=== PATIENT | female | born 1975 | race Two or more races ===

== ENCOUNTER 2023-04-29 18:47 | Emergency (ER) | payer MEDICARE, MEDICAID, SELFPAY ==
--- NOTE | ~2023-04-29 | CT_ITS ---
EXAMINATION: CT ABDOMEN AND PELVIS WITHOUT CONTRAST CLINICAL INFORMATION: bilateral flank pain. COMPARISON: No pertinent prior studies are available for comparison. TECHNIQUE: Multidetector volumetric imaging was performed from the superior aspect of the liver through the pubic symphysis without contrast per renal stone protocol. Sagittal and coronal reformatted images were obtained on the technologist workstation. This CT examination was performed using dose optimization techniques as appropriate, variously including the following: *Automated exposure control *Adjustment of mA and/or kV according to patient size (this includes techniques or standardized protocols for targeted exams where dose is matched to indication/reason for exam; i.e. extremities or head) *Use of iterative reconstruction technique DLP: 658 mGy-cm. FINDINGS: LUNG BASES: Left basilar atelectasis LIVER, GALLBLADDER, BILIARY TREE: The non-contrast liver is normal in size, shape, and attenuation. No focal hepatic lesion or biliary ductal dilatation is present. The gallbladder is unremarkable with no evidence of radiopaque gallstones, gallbladder wall thickening, or obvious pericholecystic inflammatory changes. PANCREAS: Unremarkable. SPLEEN: Unremarkable. ADRENAL GLANDS: Unremarkable. KIDNEYS AND URETERS: The kidneys are normal in size, shape, and attenuation. No hydronephrosis, hydroureter, or calculi seen. No perinephric stranding. BLADDER: Nonspecific concentric bladder wall thickening. GASTROINTESTINAL TRACT: The small and large bowel are unremarkable. The appendix is unremarkable. ABDOMINAL WALL: No significant hernia is appreciated. LYMPHOVASCULAR STRUCTURES: No lymphadenopathy. The aorta is unremarkable.. PELVIC VISCERA: Unremarkable. OSSEUS STRUCTURES: Unremarkable. CT/CT abdomen pelvis wo IV con IMPRESSION: No renal or ureteric calculi. No hydronephrosis or hydroureter. Nonspecific concentric bladder wall thickening. Cystitis cannot be excluded with this appearance and correlation with urinalysis would be recommended.
--- NOTE | 2023-04-29 20:19 | ED_ITS ---
HPI - General Adult General Chief complaint: Abdominal Pain Stated complaint: painful when urinating Time Seen by Provider: 04/29/23 22:19 Related Data Previous Rx's Medication Instructions Recorded cefuroxime axetil 250 mg tablet 250 mg PO BID 7 days #14 tabs 04/29/23 phenazopyridine 200 mg tablet 200 mg PO TID 2 days #6 tabs 04/29/23 (Pyridium) tramadol 50 mg tablet 50 mg PO Q6H PRN pain #20 tabs 04/29/23 Allergies Allergy/AdvReac Type Severity Reaction Status Date / Time ibuprofen Allergy Severe Anaphylaxis Verified 04/29/23 20:21 bee pollen [bee stings] AdvReac Anaphylaxis Verified 04/29/23 20:25 oak AdvReac Anaphylaxis Verified 04/29/23 20:25 sesame seed AdvReac Anaphylaxis Verified 04/29/23 20:27 [facility] Social History Social History Advance Directives: No Advance Directives Information Provided: No Physical Exam ED Vital Signs: Vital Signs - 24 hr 04/29/23 20:21 04/29/23 21:21 Temperature 97.7 F 98.2 F Pulse Rate 88 71 Respiratory Rate 20 16 Blood Pressure 146/61 H 128/67 Pulse Oximetry 98 99 Oxygen Delivery Method Room Air Room Air BMI result Body Mass Index 29.6 Course Course Course Narrative: RME- 47 year old female presents for evaluation of bilateral flank pain right greater than left. History of kidney stones. Plan for labs, UA, CT abdomen and Pelvis Medications Administered Discontinued Medications Generic Name Dose Route Start Last Admin Trade Name Freq PRN Reason Stop Dose Admin Cefuroxime Axetil 500 mg 04/29/23 22:26 04/29/23 22:51 Cefuroxime Axetil 500 Mg Tablet PO 04/29/23 22:27 500 mg ONCE ONE Administration Phenazopyridine HCl 200 mg 04/29/23 22:26 04/29/23 22:51 Phenazopyridine Hcl 200 Mg Tablet PO 04/29/23 22:27 200 mg ONCE ONE Administration Tramadol HCl 50 mg 04/29/23 22:48 04/29/23 22:54 Tramadol Hcl 50 Mg Tablet PO 04/29/23 22:49 50 mg ONCE ONE Administration Medical Decision Making Lab Data 04/29/23 20:45 04/29/23 20:45 Labs: Lab Results 11/06/23 Range/Units 20:45 WBC 10.6 (4.8-10.8) X10*3/uL RBC 4.39 (4.20-5.50) X10*6/uL Hgb 10.2 L (12.0-16.0) g/dl Hct 33.3 L (37.0-47.0) % MCV 75.9 L (80.0-98.0) fL MCH 23.2 L (27.0-33.0) pg MCHC 30.6 L (31.0-35.0) g/dl RDW 17.0 H (11.0-16.0) % Plt Count 365 (160-400) X10*3/uL MPV 8.9 L (9.4-12.3) fL Immature Gran % (Auto) 0.3 (0.0-0.4) % Neut % (Auto) 66.9 (45-73) % Lymph % (Auto) 24.3 (20-40) % [place] % (Auto) 7.3 (2-11) % Eos % (Auto) 0.8 (0-4) % Baso % (Auto) 0.4 (0-2) % Lymph # (Auto) 2.6 (1.2-4.9) X10*3/uL [place] # (Auto) 0.8 (0.1-1.2) X10*3/uL Eos # (Auto) 0.1 (0.0-0.4) X10*3/uL Baso # (Auto) 0.0 (0.0-0.2) X10*3/uL Abs Immat Gran (auto) 0.03 (0.00-0.03) X10*3/uL Absolute Neuts (auto) 7.1 (2.0-8.3) x10*3/uL Absolute Nucleated RBC 0.000 (0.0-0.012) X10*3/uL Nucleated RBC % (auto) 0.0 (0.0-0.2) /100WBC Sodium 139 (135-145) mmol/L Potassium 3.7 (3.3-5.1) mmol/L Chloride 106 (96-108) mmol/L Carbon Dioxide 28 (22-29) mmol/L Anion Gap 9 L (12-20) BUN 7 L (9-16) mg/dL Creatinine 0.80 (0.5-1.4) mg/dL Estim Creat Clear Calc 82.9 Estimated GFR > 60 Random Glucose 96 (60-115) mg/dL Calcium 9.8 (8.4-10.2) mg/dL Total Bilirubin 0.3 (0.0-1.0) mg/dL AST 23 (5-31) U/L ALT 23 (0-31) U/L Alkaline Phosphatase 64 (39-117) U/L Total Protein 7.8 (6.5-8.0) g/dL Albumin 4.2 (3.5-5.0) g/dL Lipase 40 (8-78) U/L Beta HCG, Quant < 2 mIU/mL Urine Color Yellow Urine Appearance Cloudy Urine pH 7.0 (5.0-9.0) Ur Specific [place] 1.010 (1.005-1.025) Urine Protein 100 (2+) H (Neg-Trace) mg/dL Urine Glucose (UA) Negative (Negative) mg/dL Urine Ketones Negative (Negative) mg/dL Urine Blood Moderate (2+) H (Negative) Urine Nitrite Positive H (Negative) Ur Leukocyte Esterase Large (3+) H (Negative) Urine RBC 6-10 H (0-2) /HPF Urine WBC >50 H (0-5) /HPF Ur Squamous Epith Cells 0-2 (0-2) /HPF Urine Bacteria 4+ (None Seen) Hyaline Casts 0-2 (0-2) /LPF Discharge Plan Discharge Clinical Impression: UTI (urinary tract infection) Patient Disposition: Home, Self-Care Instructions: Urinary Tract Infection in Women (ED) Additional Instructions: Drink plenty of fluids Take antibiotics as prescribed Pain medication as prescribed Report to the ER if high fever/vomiting/increased pain Prescriptions: New cefuroxime axetil 250 mg tablet 250 mg PO BID 7 Days Qty: 14 0RF tramadol 50 mg tablet 50 mg PO Q6H PRN (Reason: pain) Qty: 20 0RF phenazopyridine [Pyridium] 200 mg tablet 200 mg PO TID 2 Days Qty: 6 0RF Interventions: ED Discharge Assessment Last Done: 04/29/23 23:28 Discharge Date/Time: 04/29/23 23:00
[2023-04-29 20:21] VITALS: BP 146/61; PULSE 88; RESP 20; TEMP 36.5; O2SAT 98; BMI 29.6
[2023-04-29 20:55] LABS: MANUAL DIFF FLAG NO
[2023-04-29 20:56] LABS: Basophils Percent Auto 0.4 % (0-2); Eosinophils Absolute Auto 0.1 X10*3/uL (0.0-0.4); Eosinophils Percent Auto 0.8 % (0-4); Hematocrit 33.3 % (37.0-47.0); Hemoglobin 10.2 g/dl (12.0-16.0); Imm Gran Abs Auto 0.03 X10*3/uL (0.00-0.03); Imm Gran Pct Auto 0.3 % (0.0-0.4); Lymphocytes Absolute Auto 2.6 X10*3/uL (1.2-4.9); Lymphocytes Percent Auto 24.3 % (20-40); Mean Corpuscular HGB Conc 30.6 g/dl (31.0-35.0); Mean Corpuscular Hemoglobin 23.2 pg (27.0-33.0); Mean Corpuscular Volume 75.9 fL (80.0-98.0); Mean Platelet Volume 8.9 fL (9.4-12.3); Monocytes Absolute Auto 0.8 X10*3/uL (0.1-1.2); Monocytes Percent Auto 7.3 % (2-11); Neutrophils Absolute Auto 7.1 x10*3/uL (2.0-8.3); Neutrophils Percent Auto 66.9 % (45-73); Platelet Count 365 X10*3/uL (160-400); Red Blood Count 4.39 X10*6/uL (4.20-5.50); White Blood Count 10.6 X10*3/uL (4.8-10.8)
[2023-04-29 20:57] LABS: Appearance Urine Cloudy; Color Urine Yellow; Glucose Urine UA Negative (Negative); Leukocyte Esterase Urine Large (3+) (Negative); Nitrite Urine Positive (Negative); UMIC TRIGGER UACC YES; Urine Blood Moderate (2+) (Negative); Urine Ketones Negative (Negative); Urine Protein 100 (2+) mg/dL (Neg-Trace)
[2023-04-29 20:59] LABS: Bacteria Urine 4+ (None Seen); Hyaline Casts Urine 0-2 /LPF (0-2); Squamous Epithelial Cell Urine 0-2 /HPF (0-2); UACC Culture Trigger YES; WBC Urine >50 /HPF (0-5)
[2023-04-29 21:16] LABS: Alanine Aminotransferase 23 U/L (0-31); Albumin Level 4.2 g/dL (3.5-5.0); Alkaline Phosphatase 64 U/L (39-117); Anion Gap 9 (12-20); Aspartate Amino Transferase 23 U/L (5-31); Bilirubin Total 0.3 mg/dL (0.0-1.0); Blood Urea Nitrogen 7 mg/dL (9-16); Calcium 9.8 mg/dL (8.4-10.2); Carbon Dioxide 28 mmol/L (22-29); Chloride 106 mmol/L (96-108); Creatinine Clr Calc Pharmacy 82.9; Estimated Glomerular Filt Rate > 60; Glucose Random 96 mg/dL (60-115); Lipase 40 U/L (8-78); Potassium 3.7 mmol/L (3.3-5.1); Sodium 139 mmol/L (135-145); Total Protein 7.8 g/dL (6.5-8.0)
[2023-04-29 21:21] VITALS: BP 128/67; PULSE 71; RESP 16; TEMP 36.8; O2SAT 99
[2023-04-29 21:26] LABS: HCG Quantitative < 2 mIU/mL
--- NOTE | 2023-04-29 22:22 | PC.NURSE ---
pt tearful reporting 10/10 bilat flank pain; heating packs provided and assisted pt to reposition. educated pt awaiting for primary eval by ed provider at this time.
[2023-04-29] MEDS: Phenazopyridine HCL 200 MG TABLET PO (22:51)
[2023-04-29] MEDS: cefuroxime axetiL 500 MG TABLET PO (22:51)
[2023-04-29] MEDS: traMADoL HCL 50 MG TABLET PO (22:54)
--- NOTE | 2024-02-11 01:37 | ED.ABDPAIN ---
HPI - Abdominal Pain General Chief Complaint: Abdominal Pain Stated Complaint: painful when urinating Time Seen by Provider: 04/29/23 22:19 Source: patient Mode of arrival: ambulatory Limitations: no limitations History of Present Illness ED Provider: garrett [facility] narrative: Patient with history of kidney stone comes here with bilateral flank pain right more than the left for last few days getting worse denies any dysuria frequency no gross hematuria no fever no chills Related Data Previous Rx's ?Medication ?Instructions ?Recorded cefuroxime axetil 250 mg tablet 250 mg PO BID 7 days #14 tabs 04/29/23 phenazopyridine 200 mg tablet 200 mg PO TID 2 days #6 tabs 04/29/23 (Pyridium) tramadol 50 mg tablet 50 mg PO Q6H PRN pain #20 tabs 04/29/23 Allergies Allergy/AdvReac Type Severity Reaction Status Date / Time ibuprofen Allergy Severe Anaphylaxis Verified 04/29/23 20:21 bee pollen [bee stings] AdvReac Anaphylaxis Verified 04/29/23 20:25 oak AdvReac Anaphylaxis Verified 04/29/23 20:25 sesame seed AdvReac Anaphylaxis Verified 04/29/23 20:27 Review of Systems Review of Systems Yes all other systems are reviewed and are negative [facility] Social History Social History Advance Directives: No Advance Directives Information Provided: No Physical Exam ED Vital Signs: BMI result Body Mass Index 29.6 Appearance: Alert. Oriented X3. No acute distress. Eyes: No pallor or icterus ENT: Pharynx normal. Oral Mucosa moist Neck: Normal inspection. Neck supple. CVS: Normal heart rate and rhythm. Pulses normal. Respiratory: No respiratory distress. Equal air entry bilateral, no wheezing/rales/rhonchi Abdomen: Soft and nontender. Bowel sounds are present, no mass palpable, mild bilateral CVA tenderness Skin: Skin warm and dry. Normal skin color. Normal skin turgor. Extremities: No lower extremity edema. No calf tenderness Neuro: Oriented X 3. Medical Decision Making Medical Decision Making MDM Narrative: Patient's uncomplicated UTI will prescribe antibiotics likely the cause for the pain Lab Data [facility] Lab Attestation statement: I reviewed the patient's lab results. 04/29/23 20:45 04/29/23 20:45 Labs: Lab Results 04/29/23 Range/Units 20:45 WBC 10.6 (4.8-10.8) X10*3/uL RBC 4.39 (4.20-5.50) X10*6/uL Hgb 10.2 L (12.0-16.0) g/dl Hct 33.3 L (37.0-47.0) % MCV 75.9 L (80.0-98.0) fL MCH 23.2 L (27.0-33.0) pg MCHC 30.6 L (31.0-35.0) g/dl RDW 17.0 H (11.0-16.0) % Plt Count 365 (160-400) X10*3/uL MPV 8.9 L (9.4-12.3) fL Immature Gran % (Auto) 0.3 (0.0-0.4) % Neut % (Auto) 66.9 (45-73) % Lymph % (Auto) 24.3 (20-40) % [place] % (Auto) 7.3 (2-11) % Eos % (Auto) 0.8 (0-4) % Baso % (Auto) 0.4 (0-2) % Lymph # (Auto) 2.6 (1.2-4.9) X10*3/uL [place] # (Auto) 0.8 (0.1-1.2) X10*3/uL Eos # (Auto) 0.1 (0.0-0.4) X10*3/uL Baso # (Auto) 0.0 (0.0-0.2) X10*3/uL Abs Immat Gran (auto) 0.03 (0.00-0.03) X10*3/uL Absolute Neuts (auto) 7.1 (2.0-8.3) x10*3/uL Absolute Nucleated RBC 0.000 (0.0-0.012) X10*3/uL Nucleated RBC % (auto) 0.0 (0.0-0.2) /100WBC Sodium 139 (135-145) mmol/L Potassium 3.7 (3.3-5.1) mmol/L Chloride 106 (96-108) mmol/L Carbon Dioxide 28 (22-29) mmol/L Anion Gap 9 L (12-20) BUN 7 L (9-16) mg/dL Creatinine 0.80 (0.5-1.4) mg/dL Estim Creat Clear Calc 82.9 Estimated GFR > 60 Random Glucose 96 (60-115) mg/dL Calcium 9.8 (8.4-10.2) mg/dL Total Bilirubin 0.3 (0.0-1.0) mg/dL AST 23 (5-31) U/L ALT 23 (0-31) U/L Alkaline Phosphatase 64 (39-117) U/L Total Protein 7.8 (6.5-8.0) g/dL Albumin 4.2 (3.5-5.0) g/dL Lipase 40 (8-78) U/L Beta HCG, Quant < 2 mIU/mL Urine Color Yellow Urine Appearance Cloudy Urine pH 7.0 (5.0-9.0) Ur Specific [place] 1.010 (1.005-1.025) Urine Protein 100 (2+) H (Neg-Trace) mg/dL Urine Glucose (UA) Negative (Negative) mg/dL Urine Ketones Negative (Negative) mg/dL Urine Blood Moderate (2+) H (Negative) Urine Nitrite Positive H (Negative) Ur Leukocyte Esterase Large (3+) H (Negative) Urine RBC 6-10 H (0-2) /HPF Urine WBC >50 H (0-5) /HPF Ur Squamous Epith Cells 0-2 (0-2) /HPF Urine Bacteria 4+ (None Seen) Hyaline Casts 0-2 (0-2) /LPF Medications Administered Discontinued Medications Generic Name Dose Route Start Last Admin Trade Name Jerel PRN Reason Stop Dose Admin Cefuroxime Axetil 500 mg 04/29/23 22:26 04/29/23 22:51 Cefuroxime Axetil 500 Mg Tablet PO 04/29/23 22:27 500 mg ONCE ONE Administration Phenazopyridine HCl 200 mg 04/29/23 22:26 04/29/23 22:51 Phenazopyridine Hcl 200 Mg Tablet PO 04/29/23 22:27 200 mg ONCE ONE Administration Tramadol HCl 50 mg 04/29/23 22:48 04/29/23 22:54 Tramadol Hcl 50 Mg Tablet PO 04/29/23 22:49 50 mg ONCE ONE Administration Discharge Plan Discharge Clinical Impression: UTI (urinary tract infection) Patient Disposition: Home, Self-Care Instructions: Urinary Tract Infection in Women (ED) Additional Instructions: Drink plenty of fluids Take antibiotics as prescribed Pain medication as prescribed Report to the ER if high fever/vomiting/increased pain Prescriptions: New cefuroxime axetil 250 mg tablet 250 mg PO BID 7 Days Qty: 14 0RF tramadol 50 mg tablet 50 mg PO Q6H PRN (Reason: pain) Qty: 20 0RF phenazopyridine [Pyridium] 200 mg tablet 200 mg PO TID 2 Days Qty: 6 0RF Interventions: ED Discharge Assessment Last Done: 04/29/23 23:28 Discharge Date/Time: 04/29/23 23:00 Print Language: Slovenian
== END 2023-04-29 23:00 | disposition home or self-care (01) ==
PROVIDERS: Physician Assistant; Emergency Provider Internal Medicine
DX: N39.0 Urinary tract infection, site not specified (principal); R30.0 Dysuria; R10.9 Unspecified abdominal pain; Z79.899 Other long term (current) drug therapy
CPT/HCPCS: 36415; 74176; 80053; 81001; 83690; 84702; 85025; 87086; 87088; 87186; 99284

== ENCOUNTER 2024-04-01 12:55 | Emergency (ER) | payer MEDICARE, MEDICAID, SELFPAY ==
--- NOTE | ~2024-04-01 | XR_ITS ---
EXAMINATION: XR CHEST CLINICAL INFORMATION: Cough. Question pneumonia. COMPARISON: None available. TECHNIQUE: PA view of the chest was obtained. FINDINGS: The study is limited by low lung volumes. Question subtle right lower lobe focal infiltrate using the possibility of pneumonia, equivocal. If clinical suspicion warrants, and if the patient is able, repeat standing upright PA and lateral views of the chest in full inspiration may be of use for further evaluation. No effusion or pneumothorax is seen. The cardiovascular structures, mediastinum, diaphragm, bones, and soft tissues appear unremarkable. XR/XR chest 1V IMPRESSION: Findings as above. Electronically signed by: Stephon Flores MD 04/01/2024 04:48 PM EDT
--- NOTE | 2024-04-01 12:58 | ECG_ITS ---
Test Reason : CHEST PAIN Blood Pressure : / mmHG Vent. Rate : 089 BPM Atrial Rate : 089 BPM P-R Int : 148 ms QRS Dur : 082 ms QT Int : 342 ms P-R-T Axes : 044 050 046 degrees QTc Int : 416 ms Normal sinus rhythm Normal ECG No previous ECGs available Referred By: Alberto Rubalcava Electronically Signed By:DENNIS SAMPSON MD
[2024-04-01 13:57] VITALS: BP 104/45; PULSE 82; RESP 22; TEMP 36.8; O2SAT 98; BMI 26.6
--- NOTE | 2024-04-01 14:01 | ED_ITS ---
HPI - General Adult General Chief complaint: Upper Respiratory Symptoms Stated complaint: cough-cp Time Seen by Provider: 04/01/24 16:55 Source: patient Mode of arrival: ambulatory Limitations: no limitations History of Present Illness ED Provider: Alberto Rubalcava PA-C HPI narrative: 48 yold female with pmh of asthma presents to the ED for 3 weeks of coughing with sob and wheezing. Patient states fever and chills. Patient states no improvement with asthma meds. Patient states was on antibiotics, but no improvement. Patient states never having xray. Patient denies any abdominal pain, diarrhea, blood in stool, genitourinary symptoms, headache, dizziness, or flank pain. Patient denies any leg swelling, pitting edema, calf pain, or pleurisy. Related Data Previous Rx's ?Medication ?Instructions ?Recorded cefuroxime axetil 250 mg tablet 250 mg PO BID 7 days #14 tabs 04/29/23 phenazopyridine 200 mg tablet 200 mg PO TID 2 days #6 tabs 04/29/23 (Pyridium) tramadol 50 mg tablet 50 mg PO Q6H PRN pain #20 tabs 04/29/23 amoxicillin 875 mg-potassium 1 tab PO Q12H 5 days #10 tabs 04/01/24 clavulanate 125 mg tablet benzonatate 200 mg capsule 200 mg PO TID PRN cough 5 days #15 04/01/24 caps doxycycline hyclate 100 mg capsule 100 mg PO BID 7 days #14 caps 04/01/24 prednisone 20 mg tablet 40 mg (2 x 20 mg) PO DAILY 5 days 04/01/24 #10 tabs Allergies Allergy/AdvReac Type Severity Reaction Status Date / Time ibuprofen Allergy Severe Anaphylaxis Verified 04/01/24 13:58 bee pollen [bee stings] AdvReac Anaphylaxis Verified 04/01/24 13:58 oak AdvReac Anaphylaxis Verified 04/01/24 13:58 sesame seed AdvReac Anaphylaxis Verified 04/01/24 13:58 Review of Systems Review of Systems: COugh, SOB, wheezing Yes all other systems are reviewed and are negative PMFSH Social History Social History Advance Directives: No Physical Exam ED Vital Signs: Vital Signs - 24 hr 04/01/24 13:57 04/01/24 14:09 04/01/24 17:05 Temperature 98.2 F 98.6 F Pulse Rate 82 82 104 H Respiratory Rate 22 H 22 H 16 Blood Pressure 104/45 L 105/47 L Pulse Oximetry 98 97 Oxygen Delivery Method Room Air Room Air BMI result Body Mass Index 26.6 Const General: cooperative, healthy appearing, comfortable, no acute distress, well developed, alert, awake and Physically active Orientation/consciousness: patient oriented x3 [facility] Head: Yes normal to inspection, Yes No palpable skull fracture present, Yes no rmocephalic and Yes atraumatic Throat: Yes posterior oropharynx normal, Yes tonsils normal and Yes uvula midline Eyes General: appearance normal, both eyes and all related structures Neck Neck: Yes normal visual inspection, Yes full ROM, Yes no lymphadenopathy, Yes no meningeal signs, Yes trachea midline, Yes supple, No anterior neck swelling and No tender Chest Chest palpation & inspection: normal inspection of the chest and normal palpation of entire chest wall Resp Effort & Inspection: normal respiratory effort and able to speak in complete sentences Auscultation: wheezes expiratory wheezes and throughout Cardio Jugular venous distension: no JVD Heart sounds: S1 normal heart sound present and S2 normal heart sound present GI Inspection: Yes normal to inspection Palpation (GI): Soft to palpation, not firm, nontender, no guarding and not rigid General: No CVA tenderness and Yes no CVA tenderness Back/Spine/Pelvis Back: no CVA tenderness, No CVA tenderness and No back tenderness Skin General skin exam: no rashes or lesions noted, elasticity normal and turgor normal Neuro General: patient oriented x3, gait normal, tone normal, moves all extremities, Normal light touch and pain sensation, no meningeal signs, no focal motor deficits, CN's II-XI intact bilaterally and normal sensation to monofilament Extrem Other: Bilateral lower extremity negative for swelling, pitting edema, calf tenderness. General: Yes normal to inspection, Yes full ROM and Yes capillary refill normal Psych Appearance: grossly normal, well kempt and not disheveled Course Course Course Narrative: RME: Done by WAI Rubalcava. 48-year-old female comprehensive asthma presents ED for coughing, wheezing, shortness of breath and fever 102 last night. Physical exam positive for wheezing and lungs. Negative for lower extremity swelling, pitting edema, calf tenderness. ED bronchodilators ordered SARs strep chest x- ray ordered Medications Administered Discontinued Medications Generic Name Dose Route Start Last Admin Trade Name Freq PRN Reason Stop Dose Admin Albuterol Sulfate 7.5 mg/ 10 mg 04/01/24 14:08 04/01/24 14:13 Albuterol Sulfate 2.5 mg INHALE 04/01/24 14:09 10 mg ONCE ONE Administration Medical Decision Making Medical Decision Making [facility] Narrative: 48-year-old female presents to ED for coughing shortness of breath with history of asthma. Patient has lungs exam positive for wheezing was given albuterol inhaler treatment. EKG normal sinus rhythm negative STEMI. Chest x-ray showed pneumonia. Patient will be discharged with Augmentin, doxycycline, coughing medication another round of steroids. Patient informed to follow-up primary care provider. Patient's vital signs are stable. Patient is not in any respiratory failure. Not suspecting PE, CHF, myocardial infarction, Pneumot horax, hemothroax, myocarditits, or pericardititis. Patient explained worrisome signs and informed to return to the ED immediately if she has them. NO need for labs. Differential Diagnosis Differential Diagnoses: The differential diagnosis associated with the presentation includes (Pneumonia, COVID, influenza, RSV) Admission/Observation Consideration of admission/observation: Escalation of care including admission/observation considered Lab Data [facility] Lab Attestation statement: I reviewed the patient's lab results. Labs: Lab Results 04/01/24 Range/Units 15:18 Influenza Type A (PCR) NEGATIVE (Negative) Influenza Type B (PCR) NEGATIVE (Negative) RSV RNA Qual (PCR) NEGATIVE (Negative) SARS-CoV-2 RNA (RT-PCR) NEGATIVE (Negative) S. pyogenes GrpA PAULINE Negative (Negative) Independent Interpretation I performed an independent interpretation of an: Plain X-Ray Radiology Impression Discussion of test interpretation with radiology: I have reviewed the radiologist's reading. Independent Historian Clinical information obtained from an independent historian. History obtained from or confirmed by: Other (Patient) External Record Review External record reviewed: Other (prior visit) Discharge Plan Discharge Clinical Impression: Pneumonia Patient Disposition: Home, Self-Care Instructions: Community Acquired Pneumonia (ED) Additional Instructions: Chest x-ray showed pneumonia. Recommend follow-up with your primary care provider. Return to the ED immediately for shortness of breath, chest pain, coughing up blood, calf pain, leg swelling, chest pain on inspiration, intractable fever, weakness, chills, or any other concerning symptoms. FINDINGS: The study is limited by low lung volumes. Question subtle right lower lobe focal infiltrate using the possibility of pneumonia, equivocal. If clinical suspicion warrants, and if the patient is able, repeat standing upright PA and lateral views of the chest in full inspiration may be of use for further evaluation. No effusion or pneumothorax is seen. The cardiovascular structures, mediastinum, diaphragm, bones, and soft tissues appear unremarkable. XR/XR chest 1V IMPRESSION: Findings as above. Electronically signed by: Stephon Flores MD 04/01/2024 04:48 PM EDT RP Dictated By: Stephon Flores Signed By: <Electronically signed by Stephon Flores in [place]> 04/01/24 1648 Prescriptions: New amoxicillin-pot clavulanate 875-125 mg tablet 1 tab PO Q12H 5 Days Qty: 10 0RF doxycycline hyclate 100 mg capsule 100 mg PO BID 7 Days Qty: 14 0RF prednisone 20 mg tablet 40 mg PO DAILY 5 Days Qty: 10 0RF benzonatate 200 mg capsule 200 mg PO TID PRN (Reason: cough) 5 Days Qty: 15 0RF No Action cefuroxime axetil 250 mg tablet 250 mg PO BID 7 Days Qty: 14 0RF tramadol 50 mg tablet 50 mg PO Q6H PRN (Reason: pain) Qty: 20 0RF phenazopyridine [Pyridium] 200 mg tablet 200 mg PO TID 2 Days Qty: 6 0RF Stand Alone Forms: Work/School Release Interventions: ED Discharge Assessment Last Done: 04/01/24 17:05 Discharge Date/Time: 04/01/24 17:06 Print Language: Bengali
[2024-04-01 14:09] VITALS: PULSE 82; RESP 22; O2SAT 95
[2024-04-01] MEDS: Albuterol Sulfate 7.5 MG, Albuterol Sulfate (0.083%) 2.5 MG 10 MG INHALE (14:13)
[2024-04-01 15:30] LABS: IDNOW Serial# 08D9AD1C; Strep A Nucleic Acid Negative (Negative)
[2024-04-01 16:02] LABS: Influenza A PCR NEGATIVE (Negative); Influenza B PCR NEGATIVE (Negative); Resp Syncy Virus RNA Qual PCR NEGATIVE (Negative); SARS COV2 PCR INHOUSE NEGATIVE (Negative)
[2024-04-01 17:05] VITALS: BP 105/47; PULSE 104; RESP 16; TEMP 37; O2SAT 97
== END 2024-04-01 17:06 | disposition home or self-care (01) ==
PROVIDERS: Physician Assistant; Emergency Provider Internal Medicine
DX: J18.9 Pneumonia, unspecified organism (principal); R06.02 Shortness of breath; Z03.818 Encounter for observation for suspected exposure to other biological agents ruled out; R05.9 Cough, unspecified
CPT/HCPCS: 0241U; 71045; 87651; 93005; 94640; 99284

== ENCOUNTER → 2024-04-01 12:58 | Outpatient (BNV) | payer MEDICARE, MEDICAID, SELFPAY | PROVIDERS: Visit Provider Internal Medicine Cardiovascular Disease | DX: R07.9 Chest pain, unspecified (principal) | CPT/HCPCS: 93010 ==

== ENCOUNTER 2024-07-17 14:44 | Emergency (ER) | payer MEDICARE, MEDICAID, SELFPAY ==
--- NOTE | ~2024-07-17 | XR_ITS ---
EXAMINATION: XR CHEST CLINICAL INFORMATION: cough, recent PNA COMPARISON: 04/01/2024. TECHNIQUE: PA and lateral views of the chest were obtained. FINDINGS: The cardiac, hilar, and mediastinal contours are normal. The lungs are clear bilaterally. Previously seen subtle right lower lobe infiltrate has resolved. There is no pneumothorax or pleural effusion. There is no focal osseous or soft tissue abnormality. XR/XR chest 2V IMPRESSION: No active pulmonary disease. Resolution of previously seen subtle right lower lung infiltrate. Electronically signed by: Isac Vasques MD 07/17/2024 04:38 PM [facility]
[2024-07-17 16:01] VITALS: BP 136/62; PULSE 82; RESP 16; TEMP 36.6; O2SAT 99; BMI 32.8
--- NOTE | 2024-07-17 16:02 | ED_ITS ---
HPI - General Adult General Chief complaint: Dyspnea Stated complaint: lung pain Time Seen by Provider: 07/17/24 18:53 Source: patient and family () Mode of arrival: ambulatory Limitations: no limitations History of Present Illness ED Provider: NALLELY RUTHERFORD PA-C HPI narrative: 48-year-old female with pmhx significant for asthma and lupus presents to the emergency department today for evaluation of wheezing x days. Admits to using home rescue inhaler and nebulizer without improvement. Patient states she was diagnosed with pneumonia in March of 2024. She was treated with steroids and antibiotics at that time which she took to completion. Since her diagnosis of pneumonia, she has had intermittent dry cough and wheezing. She has followed up with her primary care provider who has treated her with a 2nd course of azithromycin (which she completed approximately 2 weeks ago) along with 3 courses of prednisone and cough medicine without resolution of cough. Reports lung pain secondary to coughing fits. Denies chest pain or SOB. She also endorses rash to anterior chest x3 days. No new soaps, lotions, detergents. No new medications/ abx. no known tick or insect bites. Denies fever, chills, sore throat, chest pain, shortness of breath, leg pain/swelling. No recent travel or long car rides. Related Data Previous Rx's ?Medication ?Instructions ?Recorded cefuroxime axetil 250 mg tablet 250 mg PO BID 7 days #14 tabs 04/29/23 phenazopyridine 200 mg tablet 200 mg PO TID 2 days #6 tabs 04/29/23 (Pyridium) tramadol 50 mg tablet 50 mg PO Q6H PRN pain #20 tabs 04/29/23 amoxicillin 875 mg-potassium 1 tab PO Q12H 5 days #10 tabs 04/01/24 clavulanate 125 mg tablet benzonatate 200 mg capsule 200 mg PO TID PRN cough 5 days #15 04/01/24 caps doxycycline hyclate 100 mg capsule 100 mg PO BID 7 days #14 caps 04/01/24 prednisone 20 mg tablet 40 mg (2 x 20 mg) PO DAILY 5 days 04/01/24 #10 tabs guaifenesin 200 mg tablet 200 mg PO TID PRN cough #10 tabs 07/17/24 prednisone 10 mg tablet See Taper PO DIRECTED #30 tabs 07/17/24 Allergies Allergy/AdvReac Type Severity Reaction Status Date / Time ibuprofen Allergy Severe Anaphylaxis Verified 07/17/24 16:05 bee pollen [bee stings] AdvReac Anaphylaxis Verified 07/17/24 16:05 oak AdvReac Anaphylaxis Verified 07/17/24 16:05 sesame seed AdvReac Anaphylaxis Verified 07/17/24 16:05 Review of Systems 2 Review of Systems: Constitutional: No fever, chills, fatigue, night sweats, weight changes ENT/Mouth: No ear pain, hearing loss, nasal congestion, sinus pain, rhinorrhea, sore throat Eyes: No eye pain, swelling, redness, vision changes, discharge Cardio: No chest pain, palpitations, NELSON, orthopnea, peripheral edema Pulm: No sputum, wheezing, dyspnea, hemoptysis, +wheezing, +dry cough GI: No nausea, vomiting, hematemesis, abdominal pain, diarrhea, constipation, hematochezia, melena : No irregular bleeding, dysuria, frequency, urgency, hesitancy, hematuria, flank pain, urinary flow changes, urinary incontinence or retention MSK: No back pain, neck pain, joint pain, myalgias Skin: No lesions, rashes Neuro: No weakness, numbness, paresthesias, LOC, dizziness, headache Psych: No anxiety/panic, depression, SI/HI, AH/VH All other systems reviewed and are negative. [facility] Past Medical History Attestation statement: The following information was validated with the patient. Source: old records reviewed and nursing notes reviewed Social History Social History Advance Directives: No Advance Directives Information Provided: No Do you have a plan to hurt others: No Plan Physical Exam ED Vital Signs: Vital Signs - 24 hr 07/17/24 16:01 07/17/24 19:35 07/17/24 20:00 Temperature 97.8 F 98.2 F Pulse Rate 82 79 Respiratory Rate 16 18 18 Blood Pressure 136/62 129/47 L Pulse Oximetry 99 98 Oxygen Delivery Method Room Air Room Air BMI result Body Mass Index 32.8 vital signs stable, not hypoxic General: Well appearing, in no acute distress. Skin: Warm, dry, intact. No rashes or lesions. Head: Normocephalic, atraumatic. EENT: Hearing is intact b/l. Conjunctiva clear. Sclera is anicteric. PERRLA. EOM intact. Moist mucous membranes.? Posterior oropharynx with bilateral tonsillar hypertrophy. No exudates. Uvula midline. Controlling secretions and speaking complete sentences. Neck: Supple without LAD. Cardiac: Chest wall symmetric. RRR. Lungs: Normal respiratory effort without accessory muscle use. broncospastic cough. expiratory wheezes (R>L). no crackles. no tripoding or accessory muscle use. Abdomen: Soft, non-tender, non-distended. No rebound tenderness or guarding. Positive BS x4. Back: No midline spinous or paraspinal tenderness. No step off deformity. Ext: Upper and lower extremities atraumatic, without tenderness, deformity, swelling or erythema Neuro: AOx3. Normal speech. Ambulating with steady gait. Psych: Appropriate mood and affect. Responds appropriately to questions. Course Course Course Narrative: This is a rapid medical exam performed by Autumn Richey NP: Additional HPI, ROS, PE not included below will be deferred to primary provider. Patient is a 48-year-old female presenting with 3 days of cough, shortness of breath and wheezing. Treated for pna in March, has been on prednisone on and off since that time. Has been using nebulizer and inhaler without relief. Plan: viral serology, labs, cxr Reevaluation(s) Reevaluation #1: CBC with slight leukocytosis to 12 without left shift. Likely secondary to recent steroid course. No anemia. H&H stable. troponin undetectable - unlikely ACS. Negative COVID, flu, RSV, strep. CXR does not demonstrate infiltrate or consolidation. It shows resolution of previously seen subtle right lower lung infiltrate. No concern for new or worsening pneumonia. > on re-evaluation, patient reports significant improvement in breathing with IV Solu-Medrol and magnesium. She has been treated with 2 albuterol treatments. Her vitals have remained stable. She was satting 98-99% on room air. No hypoxia. Lungs are now CTA bilaterally without wheezes. rash improved after dose of steroids. > will send patient home on steroid taper. advised benadyl and zyrtec. I do not believe abx are warranted at this time. advised to follow up with PCP. Patient has remained stable throughout ED visit today. Discussed worrisome signs and symptoms and when to return to the ED. All questions answered at this time. Patient is agreeable with disposition and stable for discharge. Medications Administered Discontinued Medications Generic Name Dose Route Start Last Admin Trade Name Jerel PRN Reason Stop Dose Admin Albuterol/Ipratropium 3 ml 07/17/24 19:27 07/17/24 19:31 Albuterol/Iprat 2.5/0.5mg 3 Ml Ampul.Neb INHALE 07/17/24 19:28 3 ml ONCE ONE Administration Magnesium Sulfate 2 gm in 50 mls @ 150 mls/hr 07/17/24 19:40 07/17/24 20:37 Magnesium Sulfate/H2o IV 07/17/24 19:59 150 mls/hr ONCE ONE Administration Methylprednisolone Sodium Succinate 125 mg 07/17/24 19:14 07/17/24 20:37 Methylprednisolone Sod Succ 125 Mg/2 Ml Vial IVPUSH 07/17/24 19:15 125 mg ONCE ONE Administration Medical Decision Making Medical Decision Making [facility] Narrative: 48-year-old female with pmhx significant for asthma and lupus presents to the emergency department today for evaluation of wheezing x days. vital signs stable. not tachycardic or hypoxic. afebrile. on exam, normal respiratory effort without accessory muscle use. broncospastic cough. expiratory wheezes (R>L). no crackles. no tripoding or accessory muscle use. no calf tendnerness. no peripheral edema or JVD. Differential diagnosis includes viral syndrome, bronchitis, pneumonia, asthma exacerbation, anemia, electrolyte abnormality. Lower suspicion for ACS, PE, arrhythmia. I also considered contact/atopic/eczematous dermatitis, psoriasis. History and exam findings not consistent with lyme/tick bourne illness, herpes zoster/simplex, scabies, HFM,? dangerous etiologies of rash such as SJS/TEN, or secondary dangerous causes such as petechial rashes from thrombocytopenia or rickettsial infections.? Plan for viral swabs, strep swab, cxr, basic labs, ed bronch protocol, solumedrol, re-evaluation. Differential Diagnosis Differential Diagnoses: The differential diagnosis associated with the presentation includes as above. Admission/Observation not indicated. Lab Data [facility] Lab Attestation statement: I reviewed the patient's lab results. as above. 07/17/24 16:44 07/17/24 16:44 Labs: Lab Results 07/17/24 07/17/24 Range/Units 16:44 19:26 WBC 12.0 H (4.8-10.8) X10*3/uL RBC 4.96 (4.20-5.50) X10*6/uL Hgb 14.3 D (12.0-16.0) g/dl Hct 43.2 D (37.0-47.0) % MCV 87.1 (80.0-98.0) fL MCH 28.8 (27.0-33.0) pg MCHC 33.1 (31.0-35.0) g/dl RDW 13.6 (11.0-16.0) % Plt Count 355 (160-400) X10*3/uL MPV 9.1 L (9.4-12.3) fL Immature Gran % (Auto) 0.4 (0.0-0.4) % Neut % (Auto) 64.2 (45-73) % Lymph % (Auto) 23.4 (20-40) % [place] % (Auto) 8.2 (2-11) % Eos % (Auto) 3.3 (0-4) % Baso % (Auto) 0.5 (0-2) % Lymph # (Auto) 2.8 (1.2-4.9) X10*3/uL [place] # (Auto) 1.0 (0.1-1.2) X10*3/uL Eos # (Auto) 0.4 (0.0-0.4) X10*3/uL Baso # (Auto) 0.1 (0.0-0.2) X10*3/uL Abs Immat Gran (auto) 0.05 H (0.00-0.03) X10*3/uL Absolute Neuts (auto) 7.7 (2.0-8.3) x10*3/uL Absolute Nucleated RBC 0.000 (0.0-0.012) X10*3/uL Nucleated RBC % (auto) 0.0 (0.0-0.2) /100WBC Sodium 138 (135-145) mmol/L Potassium 4.1 (3.3-5.1) mmol/L Chloride 105 (96-108) mmol/L Carbon Dioxide 27 (22-29) mmol/L Anion Gap 10 L (12-20) BUN 8 L (9-16) mg/dL Creatinine 0.73 (0.5-1.4) mg/dL Estim Creat Clear Calc 94.7 Estimated GFR > 60 Random Glucose 87 (60-115) mg/dL Calcium 10.1 (8.4-10.2) mg/dL Magnesium 2.2 (1.6-2.6) mg/dL Total Bilirubin 0.4 (0.0-1.0) mg/dL AST 22 (5-31) U/L ALT 32 H (0-31) U/L Alkaline Phosphatase 71 (39-117) U/L Troponin I High Sens < 2.7 (<3.5-17.0) ng/L Total Protein 8.0 (6.5-8.0) g/dL Albumin 4.3 (3.5-5.0) g/dL Influenza Type A (PCR) NEGATIVE (Negative) Influenza Type B (PCR) NEGATIVE (Negative) RSV RNA Qual (PCR) NEGATIVE (Negative) SARS-CoV-2 RNA (RT-PCR) NEGATIVE (Negative) S. pyogenes GrpA PAULINE Negative (Negative) Independent Interpretation I performed an independent interpretation of an: Plain X-Ray Interpretation: CXR without focal consolidation or infiltrate Radiology Impression Discussion of test interpretation with radiology: I have reviewed the radiologist's reading. Radiologist Impression: EXAMINATION: XR CHEST CLINICAL INFORMATION: cough, recent PNA COMPARISON: 04/01/2024. TECHNIQUE: PA and lateral views of the chest were obtained. FINDINGS: The cardiac, hilar, and mediastinal contours are normal. The lungs are clear bilaterally. Previously seen subtle right lower lobe infiltrate has resolved. There is no pneumothorax or pleural effusion. There is no focal osseous or soft tissue abnormality. XR/XR chest 2V IMPRESSION: No active pulmonary disease. Resolution of previously seen subtle right lower lung infiltrate. Electronically signed by: Isac Vasques MD 07/17/2024 04:38 PM [facility] Independent Historian Clinical information obtained from an independent historian. History obtained from or confirmed by: Spouse External Record Review External record reviewed: Inpatient record, Office record, Outpatient record, Prior outpatient labs, Prior outpatient radiology, Primary care record and Outside ED record Prescription Management I considered prescription management with: Antibiotic and Other (prednisone, benadryl) Chronic Conditions Patient?s care impacted by: Other (asthma) Social Determinants Patient?s care significantly limited by Social Determinants of Health including: Other Social Determinant of Health Critical Care Time Critical Care Time Critical Care Time: No Total Critical Care Time: 31 Attestation: Critical care time in the amount of 31 minutes has been provided to the patient in terms of direct patient care, frequent reevaluation on IV mag, review and interpretation of medical data and results, and management of potentially life- threatening conditions. This is all outside of any medical procedures. Discharge Plan Discharge Clinical Impression: Asthma exacerbation Patient Disposition: Home, Self-Care Instructions: Asthma (ED) Additional Instructions: You were evaluated in the ED today for cough and wheezing. You tested negative for covid, flu, rsv, and strep throat. Your blood work is reassuring. Your cardiac enzyme is normal. Your chest xray does not demonstrate pneumonia. You were treated with albuterol, steroids, and magnesium with improvement. A steroid taper has been sent to your pharmacy. As discussed, continue benadryl and zyrtec for rash. Follow up with your PCP as planned. Return with new or wosening symptoms. In the case of an emergency call 911. Prescriptions: New prednisone 10 mg tablet See Taper PO DIRECTED Qty: 30 0RF Taper: Prednisone 40 mg daily for 3 Days and 0 Hour 30 mg daily for 3 Days and 0 Hour 20 mg daily for 3 Days and 0 Hour 10 mg daily for 3 Days and 0 Hour Rx Instructions: see taper instructions guaifenesin 200 mg tablet 200 mg PO TID PRN (Reason: cough) Qty: 10 0RF No Action amoxicillin-pot clavulanate 875-125 mg tablet 1 tab PO Q12H 5 Days Qty: 10 0RF doxycycline hyclate 100 mg capsule 100 mg PO BID 7 Days Qty: 14 0RF prednisone 20 mg tablet 40 mg PO DAILY 5 Days Qty: 10 0RF benzonatate 200 mg capsule 200 mg PO TID PRN (Reason: cough) 5 Days Qty: 15 0RF cefuroxime axetil 250 mg tablet 250 mg PO BID 7 Days Qty: 14 0RF tramadol 50 mg tablet 50 mg PO Q6H PRN (Reason: pain) Qty: 20 0RF phenazopyridine [Pyridium] 200 mg tablet 200 mg PO TID 2 Days Qty: 6 0RF Referrals: [facility] Primary Care, Constanza [Provider Group] [facility] Primary Care,Franca [Provider Group] Stand Alone Forms: Work/School Release Print Language: Japanese
[2024-07-17 16:53] LABS: MANUAL DIFF FLAG NO
[2024-07-17 16:59] LABS: Basophils Absolute Auto 0.1 X10*3/uL (0.0-0.2); Basophils Percent Auto 0.5 % (0-2); Eosinophils Absolute Auto 0.4 X10*3/uL (0.0-0.4); Eosinophils Percent Auto 3.3 % (0-4); Hematocrit 43.2 % (37.0-47.0); Hemoglobin 14.3 g/dl (12.0-16.0); Imm Gran Abs Auto 0.05 X10*3/uL (0.00-0.03); Imm Gran Pct Auto 0.4 % (0.0-0.4); Lymphocytes Absolute Auto 2.8 X10*3/uL (1.2-4.9); Lymphocytes Percent Auto 23.4 % (20-40); Mean Corpuscular HGB Conc 33.1 g/dl (31.0-35.0); Mean Corpuscular Hemoglobin 28.8 pg (27.0-33.0); Mean Corpuscular Volume 87.1 fL (80.0-98.0); Mean Platelet Volume 9.1 fL (9.4-12.3); Monocytes Percent Auto 8.2 % (2-11); Neutrophils Absolute Auto 7.7 x10*3/uL (2.0-8.3); Neutrophils Percent Auto 64.2 % (45-73); Platelet Count 355 X10*3/uL (160-400); Red Blood Count 4.96 X10*6/uL (4.20-5.50); Red Cell Distribution Width 13.6 % (11.0-16.0)
[2024-07-17 17:10] LABS: Alanine Aminotransferase 32 U/L (0-31); Albumin Level 4.3 g/dL (3.5-5.0); Alkaline Phosphatase 71 U/L (39-117); Anion Gap 10 (12-20); Aspartate Amino Transferase 22 U/L (5-31); Bilirubin Total 0.4 mg/dL (0.0-1.0); Blood Urea Nitrogen 8 mg/dL (9-16); Calcium 10.1 mg/dL (8.4-10.2); Carbon Dioxide 27 mmol/L (22-29); Chloride 105 mmol/L (96-108); Creatinine Clr Calc Pharmacy 94.7; Estimated Glomerular Filt Rate > 60; Glucose Random 87 mg/dL (60-115); Potassium 4.1 mmol/L (3.3-5.1); Sodium 138 mmol/L (135-145)
[2024-07-17 17:31] LABS: Influenza A PCR NEGATIVE (Negative); Influenza B PCR NEGATIVE (Negative); Resp Syncy Virus RNA Qual PCR NEGATIVE (Negative); SARS COV2 PCR INHOUSE NEGATIVE (Negative)
[2024-07-17 19:30] LABS: Magnesium 2.2 mg/dL (1.6-2.6)
[2024-07-17] MEDS: Albuterol/Iprat 2.5/0.5MG 3 ML AMPUL.NEB INHALE (19:31)
[2024-07-17 19:35] VITALS: RESP 18; O2SAT 99
[2024-07-17 19:42] LABS: IDNOW Serial# 58CA691E; Strep A Nucleic Acid Negative (Negative)
[2024-07-17 19:59] LABS: Troponin-I High Sensitivity < 2.7 ng/L (<3.5-17.0)
[2024-07-17 20:00] VITALS: BP 129/47; PULSE 79; RESP 18; TEMP 36.8; O2SAT 98
--- NOTE | 2024-07-17 20:04 | MHC.EDTECH ---
This tech took over care of pt at 1900,rounded and introduced self to pt,strep swab collected and sent to lab,vitals taken,visitor at bedside call basurto in reach
[2024-07-17] MEDS: Magnesium Sulfate/H2O 2 GM/50 ML PIGGYBACK IV (20:37)
[2024-07-17] MEDS: methylPREDNISolone Sod Succ 125 MG/2 ML VIAL IVPUSH (20:37)
[2024-07-17 22:07] VITALS: BP 129/47; PULSE 79; RESP 18; TEMP 36.8; O2SAT 98
== END 2024-07-17 22:07 | disposition home or self-care (01) ==
PROVIDERS: Physician Assistant Medical; Registered Nurse Emergency; Emergency Provider Emergency Medicine Emergency Medical Services
DX: J45.901 Unspecified asthma with (acute) exacerbation (principal); R06.00 Dyspnea, unspecified; R05.9 Cough, unspecified; Z03.818 Encounter for observation for suspected exposure to other biological agents ruled out; Z79.899 Other long term (current) drug therapy
CPT/HCPCS: 0241U; 71046; 80053; 83735; 84484; 85025; 87651; 94640; 96365; 96375; 99284; J2919; J3475

== ENCOUNTER → 2024-07-17 16:04 | Outpatient (BNV) | payer MEDICARE, MEDICAID, SELFPAY | PROVIDERS: Visit Provider Radiology Diagnostic Radiology | DX: R05.9 Cough, unspecified (principal) | CPT/HCPCS: 71046 ==